=== PATIENT | female | born 1950 | race Caucasian/White ===

== ENCOUNTER 2016-12-13 10:38 | Inpatient (IN) | payer MEDICARE, OTHER ==
[~2016-12-13] VITALS: Ht 154.9 cm; Wt 70.5 kg
--- NOTE | ~2016-12-13 | CR72 ---
[facility] A Service of [facility] & [facility] RADIOLOGY TEXT RESULTS PATIENT: LEXII PADRON LOCATION: [facility] [id number] : 50 UNIT #: [id number] AGE: [address]: Arturo Calvert MD SEX: F ORDER DR: [id number] [facility] [address] [place], [place] [address] [id number] MR#: [id number] Acc #: [id number] NAME: LEXII PADRON : 1950 SEX: F STUDY DATE/TIME: 12/16/2016 6:27 UNIT: [facility] ROOM: [facility] STUDY DESCRIPTION: CR Chest Single View Portable Attending Physician: Arturo Calvert M.D. Ordering Physician: Arturo Calvert M.D. Primary Care Physician: Martín Kwan M.D. MEDICAL IMAGING REPORT This report is preliminary unless electronic signature is present EXAM Portable chest, 12/16. INDICATION Shortness of air and cough for the last 3 days. Status post recent appendectomy. COPD. FINDINGS AP portable chest compared with 04/25/2016. Heart is enlarged. There is some new alveolar disease at the left base which is probably atelectasis. There is a small left effusion. Generalized interstitial prominence on the current study would suggest very mild edema. Correlate clinically. No pneumothorax. Dictated by... Arturo Alvarez Jr., M.D. THIS IS AN ELECTRONICALLY VERIFIED REPORT Arturo Alvarez Jr., M.D. at 12/16/2016 3:47 PM ADIA/thanh TD: 12/16/2016 10:23 JOB #: [id number] MEDICAL IMAGING REPORT Page 1 of 1 COPY
--- NOTE | ~2016-12-13 | EKG ---
PATIENT: LEXII PADRON UNIT #: [id number] Ventricular Rate: 56 BPM Atrial Rate: 56 BPM P-R Interval: 118 ms QRS Duration: 70 ms Q-T Interval: 476 ms QTC Calculation(Bezet): 459 ms P [place]: 31 degrees Calculated R [place]: -4 degrees Calculated T [place]: 141 degrees Diagnosis Line: Sinus bradycardia Diagnosis Line: Nonspecific T wave abnormality Diagnosis Line: Abnormal ECG Diagnosis Line: When compared with ECG of 24-DEC-2013 15:19, Diagnosis Line: Non-specific change in ST segment in Inferior Diagnosis Line: leads Diagnosis Line: Nonspecific T wave abnormality now evident in Diagnosis Line: Lateral leads Diagnosis Line: Confirmed by SAE DENNY MD ([id number]) on 12/13/2016 Diagnosis Line: 5:02:48 PM INTERPRETING MD: DENISHA DE LA CRUZ
--- NOTE | ~2016-12-13 | OR ---
Unit #: [id number] #: [id number] Patient: LEXII PADRON [id number] [facility] [address] [place], [place] [address] [id number] MR#: [id number] NAME: LEXII PADRON ROOM: 454 Date of Procedure: 12/13/2016 Admission Date: 12/13/2016 Surgeon: Arturo Calvert M.D. : 1950 Attending Physician: Arturo Calvert M.D. Primary Care Physician: Martín Kwan M.D. OPERATIVE REPORT PREOPERATIVE DIAGNOSIS Acute appendicitis. POSTOPERATIVE DIAGNOSIS Suppurative appendicitis. PROCEDURES PERFORMED Diagnostic laparoscopy, laparoscopic lysis of adhesions, laparoscopic appendectomy. ANESTHESIA General endotracheal anesthesia. ESTIMATED BLOOD LOSS Less than 20 mL. INDICATIONS FOR PROCEDURE Ms. Padron is a 66-year-old female, who was sent to the office by her primary care physician after she complained of some right-sided abdominal pain. Outpatient CT scan was consistent with an acute appendicitis. Once she was seen in the office, she was admitted to the hospital and taken to the operating room. DESCRIPTION OF PROCEDURE The patient was admitted [facility], positively identified, transported to the operating room, and after induction of general endotracheal anesthesia, she received IV antibiotics. A Montelongo catheter was placed. Her abdominal wall hair was clipped, and she was prepped and draped in usual sterile fashion. A 5-mm supraumbilical incision was made. Veress needle was placed. Pneumoperitoneum was created. Then, a 5-mm trocar was placed. Laparoscope was introduced into the peritoneal cavity under direct vision. A 5-mm suprapubic and a 12-mm left lower quadrant trocar were placed. There were adhesions in the right lower quadrant. These were taken down by sharp and blunt dissection, and the appendix was identified. The appendix was wrapped in some omentum and as I peeled the omentum away, there was area of purulent drainage and the appendix appeared suppurative. I dissected away the mesoappendix and the omental adhesions and identified the base of the appendix as it entered the cecum. An Endo STEPHANE was used to clamp, divide, and ligate the appendix as it entered the cecum. I then dissected the rest of the mesoappendix and omental adhesions away and placed the appendix and the other suppurative tissues in an Endo catch bag and these were brought out Unit #: [id number] #: [id number] Patient: LEXII PADRON through the 12 mm trocar site. I then recreated the pneumoperitoneum and irrigated. The staple line was intact and there was good hemostasis. After fully irrigating the operative site and suctioned the irrigant out, the 12 mm fascial defect was closed with the neoClose device and the closure was airtight. I then reduced the pneumoperitoneum as I removed laparoscope and trocars. 0.5% Marcaine with epinephrine was infiltrated into each trocar site. The skin was closed with 4-0 Monocryl subcuticular closure and Dermabond skin adhesive. Sponges and needle counts were correct x3. The patient tolerated the procedure well and was transported to recovery in stable condition. Findings and postoperative expectations were discussed with her son. Dictated by... Dat Capellan/vamsi TD: 12/13/2016 14:54 JOB #: [id number] OPERATIVE REPORT Page 1 of 1 X Arturo Calvert MD X PROCEDURE OPERATIVE NOTE
--- NOTE | ~2016-12-13 | DS ---
Unit #: [id number] #: [id number] Patient: LEXII PADRON [id number] [address] [address] [id number] I MR#: [id number] NAME: LEXII PADRON ROOM: 456 Age: 66 Sex: F Admission Date: 12/13/2016 : 1950 Discharge Date: 12/18/2016 Attending Physician: Arturo Calvert M.D. Primary Care Physician: Martín Kwan M.D. DISCHARGE SUMMARY ADMITTING PHYSICIAN Dr. Arturo Calvert CONSULTATION Dr. Grey with Pulmonary. ADMITTING DIAGNOSIS Acute appendicitis. DISCHARGE DIAGNOSIS Same. SECONDARY DIAGNOSES 1. Yeast infection. 2. Hypoxia. PROCEDURE PERFORMED On 12/13, she underwent laparoscopic appendectomy. BRIEF HOSPITAL COURSE This is a 66-year-old lady who presented to our office with abdominal pain and CT scan which showed acute appendicitis. She was admitted and underwent laparoscopic appendectomy. She had some postop respiratory failure. She was on numerous inhalers prior to the surgery so pulmonary was consulted and she did improve and was able to be weaned off oxygen after several days. She did develop a skin rash consistent with a yeast infection and was started on Diflucan for that as well. Prior to discharge, her white blood count was 4000, hemoglobin was 11.5 and she was afebrile and tolerating a regular diet. DISPOSITION Discharge to home. She is to follow with Dr. Calvert in the office next Friday. She has been instructed it is okay to shower. No driving until off pain medications for 24 hours and call the office if any problems. Dictated by... Neville Casey III, M.D. VCL/wyatt Unit #: [id number] #: [id number] Patient: LEXII PADRON TD: 12/18/2016 13:22 JOB #: [id number] DISCHARGE SUMMARY Page 1 of 1 X Neville Casey III, MD DISCHARGE SUMMARY
--- NOTE | ~2016-12-13 | CO ---
Unit #: [id number] #: [id number] Patient: LEXII PADRON [id number] [address] [address] [id number] I MR#: [id number] NAME: LEXII PADRON ROOM: 456 Age: 66 Sex: F Admission Date: 12/13/2016 : 1950 Attending Physician: Arturo Calvert M.D. Primary Care Physician: Martín Kwan M.D. Consultation Date: 12/16/2016 CONSULTATION REPORT REASON FOR CONSULTATION Hypoxia. HISTORY OF PRESENT ILLNESS This is a very pleasant 66-year-old female with past medical history significant for hypertension, GERD, who presented to the emergency room with nausea, vomiting and abdominal pain. Her CT abdomen was consistent with appendicitis and patient underwent diagnostic laparoscopy with laparoscopic lysis of adhesions, laparoscopic appendectomy with no complication. However, postop patient was noted to be hypoxic and she was unable to wean off her oxygen. Patient denies any fever, chills or night sweats. She is not coughing up anything. However, she feels short winded. Her abdominal pain seems to be better with pain medicine and she denied any nausea or vomiting. She is up and walking and she is using incentive spirometer. PAST MEDICAL HISTORY 1. Hypertension. 2. GERD. PAST SURGICAL HISTORY 1. Hysterectomy. 2. Cholecystectomy. 3. Appendectomy. 4. Bronchoscopy. HOME MEDICATIONS 1. Metoprolol. 2. Cymbalta. 3. Lortab. ALLERGIES No known drug allergies. SOCIAL HISTORY Patient denied any history of drug abuse. 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 FAMILY HISTORY Hypertension, diabetes and Alzheimer. Unit #: [id number] #: [id number] Patient: LEXII PADRON REVIEW OF SYSTEM Twelve point review of system were obtained and were negative except for what was mentioned in the HPI. PHYSICAL EXAM GENERAL: The patient doesn't appear in acute distress. VITAL SIGNS: Consistent with blood pressure of 141/62, respiratory rate 18, O2 saturation 92% on 2 L nasal cannula. HEENT: Atraumatic, normocephalic. PERRLA, EOMI. NECK: Supple. No JVD, no lymphadenopathy. CHEST: Decreased breath sounds at the left lower base. HEART: S1, S2. No murmur, gallops or rubs. ABDOMEN: Soft, nontender. Bowel sound is positive. No hepatosplenomegaly. EXTREMITIES: No edema or cyanosis. SKIN: No rashes. SCIENTIFIC SYSTEMS ANALYST: Awake, alert, oriented x3. No focal motor/sensory deficit. LABS AND OTHER TESTS Creatinine 0.8, sodium 142, white blood count 9.0, hemoglobin 11.4, platelet 176. Chest x-ray is reviewed and noted by me. ASSESSMENT 1. Acute hypoxic respiratory failure, postop related. 2. Appendicitis. 3. GERD. 4. Hypertension. PLAN 1. Her oxygen will be weaned hopefully off during this admission. Etiology likely is related to atelectasis based on her chest x-ray. Underlying COPD and emphysema cannot be ruled out. 2. Will add bronchodilator and mucolytics. 3. Will encourage incentive spirometer use every one to two hours while awake. 4. Out of bed to chair and ambulation three times daily. 5. DVT and prophylaxis. 6. Antibiotics per surgery. I would like to thank Dr. Barrientos for allowing me to be part of this patient's care. Dictated by... Dat Naqvi TD: 12/17/2016 09:07 JOB #: [id number] Unit #: [id number] #: [id number] Patient: LEXII PADRON CONSULTATION REPORT Page 1 of 1 X PEGGY MCKENZIE MD CONSULTATION REPORT
[~2016-12-13 10:38] MED LIST: ALBUTEROL17 GM; ALBUTEROL17 GM INH; AMLODIPINE BESY10 MG PO; AMOXICILLIN875 MG PO; ATIVAN PO; AVAPRO150 MG PO; BENZONATATE PO; BRIMONIDINE TART5 ML OU; CRESTOR PO; CYMBALTA PO; FAMOTIDINE20 M1 PO; LEVAQUIN750 MG PO; LIPITOR40 MG; LORTAB 5-325 M1 EACH PO; METOPROLOL SUC100 MG PO; MUCUS RELIEF600 MG PO; MULTI VITAMIN1 EACH PO; ROBITUSSIN A-C S5 ML PO; TRADJENTA5 MG PO; XANAX1 MG PO; ZITHROMAX PO; ZYRTEC PO
[2016-12-13] MEDS ORDERED: COZAAR100 MG PO (11:02)
[2016-12-13] MEDS ORDERED: BENZONATATE PO (11:06)
[2016-12-13] MEDS ORDERED: LOMOTIL 2.5-0.1 EACH (11:07)
[2016-12-13] MEDS ORDERED: SYMBICORT INH (11:08)
[2016-12-13] MEDS ORDERED: FLONASE ALLERG9.9 ML (11:08)
[2016-12-13] MEDS ORDERED: VISINE MOISTURI30 ML (11:10)
[2016-12-13] MEDS ORDERED: FISH OIL 1,0001 EAC4 PO (11:11)
[2016-12-13] MEDS ORDERED: CALCIUM500 M1 PO (11:12)
[2016-12-13] MEDS ORDERED: MULTI VITAMIN1 EACH PO (11:13)
[2016-12-13] MEDS ORDERED: ASPIRIN81 M2 PO (11:19)
[2016-12-13] MEDS ORDERED: VITAMIN D35000 UNIT PO (11:20)
[2016-12-13] MEDS ORDERED: ALPRAZOLAM0.5 MG PO (11:20)
[2016-12-13 11:22] LABS: BASOPHIL% 0.5 % (0-2.5); EOSINOPHIL# 0.1 X10e3 (0-0.7); EOSINOPHIL% 0.6 % (0.0-7.0); HEMATOCRIT 41.8 % (35.0-45.0); HEMOGLOBIN 14.8 gm/dL (12.0-16.0); LYMPHOCYTE# 0.9 X10e3 (1.0-3.5); LYMPHOCYTE% 10.7 % (17.0-45.0); MEAN CELL VOLUME 101.6 FL (83-96); MEAN CORPUSCULAR HEMOGLOBIN 35.9 PG (28-34); MEAN CORPUSCULAR HGB CONC 35.3 g/dL (30-36); MEAN PLATELET VOLUME 8.9 FL (6.5-11.5); MONOCYTE# 0.5 X10e3 (0-1.0); MONOCYTE% 5.4 % (3.0-12.0); NEUTROPHIL# 7.1 X10e3 (1.5-7.1); NEUTROPHIL% 82.8 % (40-75); PLATELET COUNT 245 X10e3 (140-420); RED BLOOD COUNT 4.11 X10e (3.90-5.30); RED CELL DISTRIBUTION WIDTH 13.2 % (11.0-15.5); WHITE BLOOD COUNT 8.6 X10e3 (4.0-10.5)
[2016-12-13 11:23] LABS: DIFF IND NO
[2016-12-13 12:12] LABS: BUN/CREATININE RATIO 8.75; CALCIUM SERUM 8.7 mg/dL (8.4-10.2); CREATININE SERUM 0.8 mg/dL (0.6-1.4); GLOM FILT RATE Estimated 76.9 mL/min (>60)
[2016-12-13 12:16] LABS: POTASSIUM 4.2 mmol/L (3.5-5.1)
[2016-12-13] MEDS ORDERED: BYSTOLIC10 MG PO (13:58)
[2016-12-13] MEDS ORDERED: GLUCOPHAGE500 MG PO (13:59)
[2016-12-13] MEDS ORDERED: PANTOPRAZOLE SO40 MG PO (15:08)
[2016-12-13] MEDS ORDERED: DESYREL100 MG PO (23:10)
[2016-12-14 03:43] LABS: HEMATOCRIT 34.8 % (35.0-45.0); MEAN CELL VOLUME 103.8 FL (83-96); MEAN CORPUSCULAR HEMOGLOBIN 35.9 PG (28-34); MEAN CORPUSCULAR HGB CONC 34.6 g/dL (30-36); MEAN PLATELET VOLUME 8.7 FL (6.5-11.5); RED BLOOD COUNT 3.35 X10e (3.90-5.30); RED CELL DISTRIBUTION WIDTH 13.2 % (11.0-15.5); WHITE BLOOD COUNT 7.5 X10e3 (4.0-10.5)
[2016-12-14 04:05] LABS: CALCIUM SERUM 7.5 mg/dL (8.4-10.2); GLOM FILT RATE Estimated 58.7 mL/min (>60); MAGNESIUM 1.1 mg/dL (1.6-3.0); PHOSPHOROUS 4.2 mg/dL (2.5-4.6); POTASSIUM 3.2 mmol/L (3.5-5.1)
[2016-12-14 10:54] LABS: FOLATE (FOLIC ACID) 21.3 ng/mL (>5.8)
[2016-12-15 03:42] LABS: BUN/CREATININE RATIO 12.22; CALCIUM SERUM 7.9 mg/dL (8.4-10.2); CREATININE SERUM 0.9 mg/dL (0.6-1.4); GLOM FILT RATE Estimated 66.7 mL/min (>60); MAGNESIUM 1.8 mg/dL (1.6-3.0); POTASSIUM 4.5 mmol/L (3.5-5.1)
[2016-12-16 04:16] LABS: HEMATOCRIT 33.1 % (35.0-45.0); HEMOGLOBIN 11.4 gm/dL (12.0-16.0); MEAN CELL VOLUME 103.4 FL (83-96); MEAN CORPUSCULAR HEMOGLOBIN 35.7 PG (28-34); MEAN CORPUSCULAR HGB CONC 34.5 g/dL (30-36); MEAN PLATELET VOLUME 8.2 FL (6.5-11.5); RED BLOOD COUNT 3.2 X10e (3.90-5.30); RED CELL DISTRIBUTION WIDTH 12.9 % (11.0-15.5)
[2016-12-16 04:37] LABS: CALCIUM SERUM 7.6 mg/dL (8.4-10.2); CREATININE SERUM 0.8 mg/dL (0.6-1.4); GLOM FILT RATE Estimated 76.9 mL/min (>60); POTASSIUM 4.3 mmol/L (3.5-5.1)
[2016-12-18 03:41] LABS: HEMATOCRIT 33.4 % (35.0-45.0); HEMOGLOBIN 11.5 gm/dL (12.0-16.0); MEAN CELL VOLUME 102.9 FL (83-96); MEAN CORPUSCULAR HEMOGLOBIN 35.3 PG (28-34); MEAN CORPUSCULAR HGB CONC 34.3 g/dL (30-36); RED BLOOD COUNT 3.25 X10e (3.90-5.30); WHITE BLOOD COUNT 4.7 X10e3 (4.0-10.5)
[2016-12-18 04:02] LABS: CALCIUM SERUM 7.6 mg/dL (8.4-10.2); CREATININE SERUM 0.7 mg/dL (0.6-1.4); GLOM FILT RATE Estimated 90.3 mL/min (>60); POTASSIUM 3.5 mmol/L (3.5-5.1)
[2016-12-18] MEDS ORDERED: LORTAB 7.5-3251 EACH PO (07:53)
[2016-12-18] MEDS ORDERED: DIFLUCAN200 MG PO (07:54)
== END 2016-12-18 09:01 | disposition home or self-care (01) | DRG 341 ==
LOC: CSUR 10:38 → CPACUOF 14:16 → CSUR 14:34 → CPACUOF 14:34 → C4B 15:52 → CPACUOF 15:52 → C4B 12-16 09:24
PROVIDERS: Specialist
PROC: 0DTJ4ZZ Resection of Appendix, Percutaneous Endoscopic Approach (ICD-10-PCS; principal; 2016-12-13 12:00)
DX: K35.80 Unspecified acute appendicitis (principal); J95.821 Acute postprocedural respiratory failure; L03.311 Cellulitis of abdominal wall; J98.11 Atelectasis; I10 Essential (primary) hypertension; B37.2 Candidiasis of skin and nail; K21.9 Gastro-esophageal reflux disease without esophagitis; R58 Hemorrhage, not elsewhere classified
CPT/HCPCS: 71010; 80048; 82607; 82746; 82947; 83735; 84100; 85025; 85027; 87493; 88304; 93005; 94640; 94760; J0131; J0330; J0360; J1815; J1885; J1940; J2250; J2270; J2405; J2543; J2710; J3010; J3475